=== PATIENT | female | born 1940 | race Caucasian/White ===

== ENCOUNTER → 2024-03-05 | Outpatient (CLI) | payer MEDICARE, BC ==
[2024-03-05 15:55] LABS: INR 1.77
== END ==
LOC: M LAB 15:03
PROVIDERS: ATTEND Internal Medicine Cardiovascular Disease
DX: I48.20 Chronic atrial fibrillation, unspecified (principal); Z51.81 Encounter for therapeutic drug level monitoring; Z79.01 Long term (current) use of anticoagulants

== ENCOUNTER → 2024-03-12 | Outpatient (CLI) | payer MEDICARE, BC ==
[2024-03-12 14:29] LABS: INR 2.19; PROTHROMBIN TIME 23.5 SECONDS (12.5-14.5)
== END ==
LOC: M LAB 13:54
PROVIDERS: ATTEND Internal Medicine Cardiovascular Disease
DX: Z51.81 Encounter for therapeutic drug level monitoring (principal); Z79.01 Long term (current) use of anticoagulants; I48.20 Chronic atrial fibrillation, unspecified

== ENCOUNTER → 2024-03-19 | Outpatient (CLI) | payer MEDICARE, BC ==
[2024-03-19 15:38] LABS: INR 2.38; PROTHROMBIN TIME 25.2 SECONDS (12.5-14.5)
== END ==
LOC: M LAB 14:24
PROVIDERS: ATTEND Internal Medicine Cardiovascular Disease
DX: Z51.81 Encounter for therapeutic drug level monitoring (principal); I48.20 Chronic atrial fibrillation, unspecified; Z79.01 Long term (current) use of anticoagulants

== ENCOUNTER → 2024-03-20 | Outpatient (CLI) | payer MEDICARE, BC | LOC: M RAD 10:37 → EDUNIT# 11:15 | PROVIDERS: ATTEND Surgery | DX: I70.292 Other atherosclerosis of native arteries of extremities, left leg (principal); R68.89 Other general symptoms and signs; E11.59 Type 2 diabetes mellitus with other circulatory complications ==

== ENCOUNTER → 2024-03-21 | Outpatient (REF) | payer MEDICARE, BC | LOC: M SFHCWOUN 16:29 | PROVIDERS: ATTEND Physician Assistant | DX: L97.922 Non-pressure chronic ulcer of unspecified part of left lower leg with fat layer exposed (principal) ==

== ENCOUNTER → 2024-04-02 | Outpatient (CLI) | payer MEDICARE, BC ==
[2024-04-02 10:57] LABS: INR 2.8; PROTHROMBIN TIME 28.5 SECONDS (12.5-14.5)
== END ==
LOC: M LAB 09:45
PROVIDERS: ATTEND Internal Medicine Cardiovascular Disease
DX: Z51.81 Encounter for therapeutic drug level monitoring (principal); Z79.01 Long term (current) use of anticoagulants; I48.20 Chronic atrial fibrillation, unspecified

== ENCOUNTER → 2024-04-05 | Outpatient (CLI) | payer MEDICARE, BC ==
[2024-04-05 09:36] LABS: HEMATOCRIT 28.3 % (36.0-47.0); HEMOGLOBIN 8.9 g/dl (12.0-15.5); MEAN CORPUSCULAR HEMOGLOBIN 28.3 pg (27.0-33.0); MEAN CORPUSCULAR HGB CONC 31.4 g/dl (32.0-36.5); MEAN CORPUSCULAR VOLUME 90.1 fl (80.0-96.0); PLATELET COUNT, AUTOMATED 233 10^3/uL (150-450); RED BLOOD COUNT 3.14 10^6/uL (4.00-5.40); WHITE BLOOD COUNT 6.4 10^3/uL (4.0-10.0)
== END ==
LOC: M LAB 08:18
PROVIDERS: ATTEND Physician Assistant
DX: I87.312 Chronic venous hypertension (idiopathic) with ulcer of left lower extremity (principal)

== ENCOUNTER → 2024-04-07 | Outpatient (CLI) | payer MEDICARE, BC ==
[2024-04-07 10:03] LABS: HEMATOCRIT 30.1 % (36.0-47.0); HEMOGLOBIN 9.2 g/dl (12.0-15.5); MEAN CORPUSCULAR HEMOGLOBIN 27.8 pg (27.0-33.0); MEAN CORPUSCULAR HGB CONC 30.6 g/dl (32.0-36.5); MEAN CORPUSCULAR VOLUME 90.9 fl (80.0-96.0); PLATELET COUNT, AUTOMATED 236 10^3/uL (150-450); RED BLOOD COUNT 3.31 10^6/uL (4.00-5.40); WHITE BLOOD COUNT 6.1 10^3/uL (4.0-10.0)
== END ==
LOC: M LAB 09:43
PROVIDERS: ATTEND Physician Assistant
DX: D64.9 Anemia, unspecified (principal)

== ENCOUNTER → 2024-04-16 | Outpatient (CLI) | payer MEDICARE, BC ==
[2024-04-16 11:01] LABS: INR 2.24
== END ==
LOC: M LAB 09:39
PROVIDERS: ATTEND Internal Medicine Cardiovascular Disease
DX: I48.20 Chronic atrial fibrillation, unspecified (principal); Z51.81 Encounter for therapeutic drug level monitoring; Z79.01 Long term (current) use of anticoagulants

== ENCOUNTER → 2024-04-16 | Outpatient (CLI) | payer MEDICARE, BC ==
[2024-04-16 10:50] LABS: HEMATOCRIT 31.4 % (36.0-47.0); HEMOGLOBIN 9.7 g/dl (12.0-15.5); MEAN CORPUSCULAR HEMOGLOBIN 27.5 pg (27.0-33.0); MEAN CORPUSCULAR HGB CONC 30.9 g/dl (32.0-36.5); PLATELET COUNT, AUTOMATED 247 10^3/uL (150-450); RED BLOOD COUNT 3.53 10^6/uL (4.00-5.40); WHITE BLOOD COUNT 7.9 10^3/uL (4.0-10.0)
== END ==
LOC: M LAB 09:37
PROVIDERS: ATTEND Physician Assistant
DX: D64.9 Anemia, unspecified (principal); I48.20 Chronic atrial fibrillation, unspecified; Z51.81 Encounter for therapeutic drug level monitoring; Z79.01 Long term (current) use of anticoagulants

== ENCOUNTER → 2024-04-19 | Outpatient (CLI) | payer MEDICARE, BC ==
[2024-04-19 19:08] LABS: BASO % 0.4 % (0.0-1.0); EOS # 0.1 10^3/uL (0.0-0.5); EOS % 1.2 % (0.0-3.0); HEMOGLOBIN 9.8 g/dl (12.0-15.5); LYMPH # 1.9 10^3/uL (1.5-5.0); LYMPH % 23.2 % (24.0-44.0); MEAN CORPUSCULAR HEMOGLOBIN 28.2 pg (27.0-33.0); MEAN CORPUSCULAR HGB CONC 31.6 g/dl (32.0-36.5); MEAN CORPUSCULAR VOLUME 89.3 fl (80.0-96.0); MONO # 0.7 10^3/uL (0.0-0.8); MONO % 9.1 % (2.0-8.0); NEUTROPHILS # 5.3 10^3/uL (1.5-8.5); NEUTROPHILS % 65.6 % (36.0-66.0); PLATELET COUNT, AUTOMATED 265 10^3/uL (150-450); RED BLOOD COUNT 3.47 10^6/uL (4.00-5.40); WHITE BLOOD COUNT 8.1 10^3/uL (4.0-10.0)
[2024-04-19 19:18] LABS: HEMOGLOBIN A1c 6.6 % (4.0-6.0)
[2024-04-19 19:25] LABS: IRON (FE) 28 UG/DL (50-170)
[2024-04-19 19:26] LABS: ALBUMIN 2.8 G/DL (3.2-5.2); ALKALINE PHOSPHATASE 71 U/L (46-116); ALT/SGPT 24 U/L (7.0-40); AST/SGOT 22 U/L (<34); BILIRUBIN,TOTAL 0.4 MG/DL (0.3-1.2); BLOOD UREA NITROGEN 22 MG/DL (9-23); CALCIUM LEVEL 8.3 MG/DL (8.3-10.6); CARBON DIOXIDE LEVEL 29 MMOL/L (20-31); CHLORIDE LEVEL 103 MMOL/L (98-107); CHOLESTEROL LEVEL 121 MG/DL (<200); CREATININE FOR GFR 0.85 MG/DL (0.55-1.30); GLOMERULAR FILTRATION RATE > 60.0 (>32); GLUCOSE, FASTING 231 MG/DL (74-106); HDL CHOLESTEROL 31.8 MG/DL (>40); LDL CHOLESTEROL 67.6 MG/DL (<100); MAGNESIUM LEVEL 2.1 MG/DL (1.8-2.4); NON-HDL-C 89.2 MG/DL; POTASSIUM SERUM 3.6 MMOL/L (3.5-5.1); SODIUM LEVEL 138 MMOL/L (136-145); TOTAL IRON BINDING CAPACITY 281 UG/DL (250-425); TRIGLYCERIDES LEVEL 108 MG/DL (<150)
[2024-04-19 19:27] LABS: FREE T4 0.99 NG/DL (0.89-1.76)
[2024-04-19 19:28] LABS: THYROID STIMULATING HORMONE 0.624 uIU/ML (0.55-4.78)
== END ==
LOC: M PLALAB 15:02
PROVIDERS: ATTEND Nurse Practitioner Family
DX: D64.9 Anemia, unspecified (principal); E11.9 Type 2 diabetes mellitus without complications; I10 Essential (primary) hypertension; E78.2 Mixed hyperlipidemia; F41.9 Anxiety disorder, unspecified; E55.9 Vitamin D deficiency, unspecified

== ENCOUNTER → 2024-04-30 | Outpatient (CLI) | payer MEDICARE, BC | LOC: M PLALAB 14:26 | PROVIDERS: ATTEND Nurse Practitioner Family | DX: D64.9 Anemia, unspecified (principal) ==

== ENCOUNTER → 2024-04-30 | Outpatient (CLI) | payer MEDICARE, BC ==
[2024-04-30 17:11] LABS: INR 2.56; PROTHROMBIN TIME 26.6 SECONDS (12.5-14.5)
== END ==
LOC: M PLALAB 14:30
PROVIDERS: ATTEND Internal Medicine Cardiovascular Disease
DX: Z51.81 Encounter for therapeutic drug level monitoring (principal); I48.20 Chronic atrial fibrillation, unspecified; Z79.01 Long term (current) use of anticoagulants

== ENCOUNTER 2024-05-06 17:25 | Emergency (ER) | payer MEDICARE, BC ==
[~2024-05-06] VITALS: Ht 160 cm; Wt 87.6 kg
[2024-05-06 17:44] VITALS: TEMP 100.7
[2024-05-06] MEDS ORDERED: ISOVUE-370 76% 100ML VIAL As Ordered ONE (17:44)
[2024-05-06 17:48] LABS: BASO % 0.5 % (0.0-1.0); EOS # 0.2 10^3/uL (0.0-0.5); EOS % 2.5 % (0.0-3.0); HEMATOCRIT 32.7 % (36.0-47.0); HEMOGLOBIN 10.3 g/dl (12.0-15.5); LYMPH % 37.5 % (24.0-44.0); MEAN CORPUSCULAR HEMOGLOBIN 27.8 pg (27.0-33.0); MEAN CORPUSCULAR HGB CONC 31.5 g/dl (32.0-36.5); MEAN CORPUSCULAR VOLUME 88.4 fl (80.0-96.0); MONO # 0.8 10^3/uL (0.0-0.8); MONO % 9.7 % (2.0-8.0); NEUTROPHILS % 49.4 % (36.0-66.0); PLATELET COUNT, AUTOMATED 212 10^3/uL (150-450)
[2024-05-06] MEDS: ACETAMINOPHEN TAB 650MG DOSE (2X325MG) PO ONE (18:05)
[2024-05-06 18:07] LABS: CK-MB VALUE MASS < 1.0 NG/ML (<3.6)
[2024-05-06 18:09] LABS: BLOOD UREA NITROGEN 18 MG/DL (9-23); CALCIUM LEVEL 8.5 MG/DL (8.3-10.6); CARBON DIOXIDE LEVEL 30 MMOL/L (20-31); CHLORIDE LEVEL 108 MMOL/L (98-107); CREATININE FOR GFR 0.81 MG/DL (0.55-1.30); GLOMERULAR FILTRATION RATE > 60.0 (>32); GLUCOSE, FASTING 266 MG/DL (74-106); POTASSIUM SERUM 4.3 MMOL/L (3.5-5.1); SODIUM LEVEL 139 MMOL/L (136-145)
[2024-05-06 18:11] LABS: CPK CREATINE PHOSPHOKINASE 82 U/L (34-145); MB/CK RELATIVE INDEX 1.21 (< OR =4)
[2024-05-06] MEDS ORDERED: CEFEPIME HCL 2 GM in D5W MINI-BAG PLUS 50 ML IV ONE (18:25)
[2024-05-06 18:30] LABS: INR 2.37; PARTIAL THROMBOPLASTIN TIME 30.1 SECONDS (24.8-34.2)
[2024-05-06 18:52] VITALS: BP 113/53; O2SAT 95
== END 2024-05-06 18:59 | disposition left against medical advice (07) ==
LOC: EDBD 17:25 → M ED 17:25
DX: R53.1 Weakness (principal); R06.02 Shortness of breath; J81.1 Chronic pulmonary edema; I51.7 Cardiomegaly; E11.9 Type 2 diabetes mellitus without complications; E78.5 Hyperlipidemia, unspecified; K58.9 Irritable bowel syndrome, unspecified; Z95.0 Presence of cardiac pacemaker; Z86.79 Personal history of other diseases of the circulatory system; Z79.01 Long term (current) use of anticoagulants; Z53.9 Procedure and treatment not carried out, unspecified reason
CPT/HCPCS: 36415; 51701; 70450; 70496; 70498; 71045; 80047; 80048; 82550; 82553; 84484; 85025; 85610; 85730; 87486; 87581; 87633; 87798; 93005; 93041; 94760; 99285; Q9967

== ENCOUNTER → 2024-05-17 | Outpatient (CLI) | payer MEDICARE, BC ==
[2024-05-17 17:19] LABS: INR 1.66
== END ==
LOC: M PLALAB 16:06
PROVIDERS: ATTEND Internal Medicine Cardiovascular Disease
DX: I48.20 Chronic atrial fibrillation, unspecified (principal); Z51.81 Encounter for therapeutic drug level monitoring; Z79.01 Long term (current) use of anticoagulants

== ENCOUNTER → 2024-05-29 | Outpatient (CLI) | payer MEDICARE, BC ==
[2024-05-29 15:16] LABS: INR 2.44; PROTHROMBIN TIME 25.6 SECONDS (12.5-14.5)
== END ==
LOC: M PLALAB 14:07
PROVIDERS: ATTEND Internal Medicine Cardiovascular Disease
DX: I48.20 Chronic atrial fibrillation, unspecified (principal); Z51.81 Encounter for therapeutic drug level monitoring; Z79.01 Long term (current) use of anticoagulants

== ENCOUNTER → 2024-06-06 | Outpatient (CLI) | payer MEDICARE, BC ==
[2024-06-06 15:07] LABS: INR 2.73; PROTHROMBIN TIME 27.9 SECONDS (12.5-14.5)
== END ==
LOC: M PLALAB 13:10
PROVIDERS: ATTEND Internal Medicine Cardiovascular Disease
DX: I48.20 Chronic atrial fibrillation, unspecified (principal); Z51.81 Encounter for therapeutic drug level monitoring; Z79.01 Long term (current) use of anticoagulants

== ENCOUNTER → 2024-06-12 | Outpatient (REF) | payer MEDICARE, BC ==
[~2024-06-12] MED LIST: ACET-897 PO; ATOR40TA75 PO; ELIQ5TAB PO; EZET10TA21 PO; FERR1TAB8 PO; FLUC-1 PO; FURO40TA2 PO; GABA-1172 PO; HUMA75VLDS SC; LEXA5TAB13 PO; LOSA25TA13 PO; MIRA3350 PO; MIRT-88 PO; ONDA-83 PO; THERTAB52 PO; WARF4TAB51 PO
[2024-06-12 09:27] LABS: INR 3.31; PROTHROMBIN TIME 32.4 SECONDS (12.5-14.5)
== END ==
DX: I48.91 Unspecified atrial fibrillation (principal)

== ENCOUNTER → 2024-06-21 | Outpatient (REF) | payer MEDICARE, BC ==
[2024-06-21 09:01] LABS: INR 2.92; PROTHROMBIN TIME 29.4 SECONDS (12.5-14.5)
== END ==
PROVIDERS: ATTEND Nurse Practitioner Family
DX: I48.91 Unspecified atrial fibrillation (principal)

== ENCOUNTER 2024-07-05 10:57 | Emergency (ER) | payer MEDICARE, BC ==
[2024-07-05] MEDS ORDERED: WARF4TAB51 PO (11:43)
[2024-07-05 11:45] LABS: HEMATOCRIT 29.8 % (36.0-47.0); HEMOGLOBIN 9.3 g/dl (12.0-15.5); MEAN CORPUSCULAR HEMOGLOBIN 26.3 pg (27.0-33.0); MEAN CORPUSCULAR HGB CONC 31.2 g/dl (32.0-36.5); MEAN CORPUSCULAR VOLUME 84.2 fl (80.0-96.0); PLATELET COUNT, AUTOMATED 226 10^3/uL (150-450); RED BLOOD COUNT 3.54 10^6/uL (4.00-5.40); WHITE BLOOD COUNT 9.6 10^3/uL (4.0-10.0)
[2024-07-05 12:10] LABS: PROTHROMBIN TIME > 150.0 SECONDS (12.5-14.5)
[2024-07-05 12:19] LABS: INR > 23.00
[2024-07-05 13:08] LABS: BLOOD UREA NITROGEN 18 MG/DL (9-23); CALCIUM LEVEL 8.4 MG/DL (8.3-10.6); CARBON DIOXIDE LEVEL 30 MMOL/L (20-31); CHLORIDE LEVEL 106 MMOL/L (98-107); CREATININE FOR GFR 0.77 MG/DL (0.55-1.30); GLOMERULAR FILTRATION RATE > 60.0 (>32); GLUCOSE, FASTING 202 MG/DL (74-106); POTASSIUM SERUM 3.1 MMOL/L (3.5-5.1); SODIUM LEVEL 140 MMOL/L (136-145)
[2024-07-05] MEDS: PHYTONADIONE 5 MG TAB PO ONE (13:26)
[2024-07-05] MEDS: POTASSIUM CHLORIDE 10MEQ SR TABLET PO ONE (13:28)
[2024-07-05] MEDS ORDERED: THERTAB52 PO (13:49)
[2024-07-05] MEDS ORDERED: FURO40TA2 PO (13:49)
[2024-07-05] MEDS ORDERED: EZET10TA21 PO (13:49)
[2024-07-05] MEDS ORDERED: MIRT-88 PO (13:49)
[2024-07-05] MEDS ORDERED: FERR1TAB8 PO (13:49)
[2024-07-05] MEDS ORDERED: LEXA5TAB13 PO (13:49)
[2024-07-05] MEDS ORDERED: ATOR40TA75 PO (13:49)
[2024-07-05] MEDS ORDERED: FLUC200T4 PO (13:49)
[2024-07-05] MEDS ORDERED: GABA-1172 PO ×2 (13:49)
[2024-07-05] MEDS ORDERED: LOSA25TA13 PO (13:49)
[2024-07-05] MEDS ORDERED: ONDA-83 PO (13:56)
[2024-07-05] MEDS ORDERED: ACET-897 PO (13:56)
[2024-07-05] MEDS ORDERED: MIRA3350 PO (13:56)
[2024-07-05] MEDS ORDERED: HUMA75VLDS SC (13:56)
[2024-07-05] MEDS ORDERED: HOME MED LIST COMPLETE! XX SCH (14:00)
[2024-07-05 14:43] VITALS: BP 134/62; TEMP 98; O2SAT 98
== END 2024-07-05 14:44 | disposition home or self-care (01) ==
LOC: M ED 10:57
DX: R79.1 Abnormal coagulation profile (principal); E11.9 Type 2 diabetes mellitus without complications; E78.5 Hyperlipidemia, unspecified; I48.91 Unspecified atrial fibrillation; Z86.79 Personal history of other diseases of the circulatory system; Z79.02 Long term (current) use of antithrombotics/antiplatelets; Z79.811 Long term (current) use of aromatase inhibitors; Z79.899 Other long term (current) drug therapy; Z79.01 Long term (current) use of anticoagulants; Z79.4 Long term (current) use of insulin

== ENCOUNTER → 2024-07-05 | Outpatient (REF) | payer MEDICARE, BC ==
[~2024-07-05] MED LIST changes: -ELIQ5TAB PO; -FLUC-1 PO; +FLUC200T4 PO
[2024-07-05 08:34] LABS: PROTHROMBIN TIME > 150.0 SECONDS (12.5-14.5)
[2024-07-05 09:42] LABS: INR > 23.00
== END ==
PROVIDERS: ATTEND Nurse Practitioner Family
DX: I48.91 Unspecified atrial fibrillation (principal); Z79.01 Long term (current) use of anticoagulants

== ENCOUNTER 2024-07-08 11:35 | Emergency (ER) | payer MEDICARE, BC ==
[~2024-07-08] VITALS: Ht 160 cm; Wt 88.6 kg
[2024-07-08 13:27] LABS: BASO # 0.1 10^3/uL (0.0-0.2); BASO % 0.5 % (0.0-1.0); EOS # 0.1 10^3/uL (0.0-0.5); EOS % 1.3 % (0.0-3.0); HEMATOCRIT 27.7 % (36.0-47.0); HEMOGLOBIN 8.6 g/dl (12.0-15.5); LYMPH # 2.4 10^3/uL (1.5-5.0); LYMPH % 24.1 % (24.0-44.0); MEAN CORPUSCULAR HEMOGLOBIN 26.5 pg (27.0-33.0); MEAN CORPUSCULAR VOLUME 85.2 fl (80.0-96.0); MONO # 0.9 10^3/uL (0.0-0.8); MONO % 8.5 % (2.0-8.0); NEUTROPHILS # 6.5 10^3/uL (1.5-8.5); NEUTROPHILS % 65.1 % (36.0-66.0); PLATELET COUNT, AUTOMATED 239 10^3/uL (150-450); RED BLOOD COUNT 3.25 10^6/uL (4.00-5.40)
[2024-07-08 13:39] LABS: PARTIAL THROMBOPLASTIN TIME 91.2 SECONDS (24.8-34.2); PROTHROMBIN TIME 87.2 SECONDS (12.5-14.5)
[2024-07-08 13:40] LABS: INR 11.74
[2024-07-08 14:08] VITALS: BP 148/63; TEMP 97.8; O2SAT 100
[2024-07-08 14:19] LABS: ALBUMIN 2.5 G/DL (3.2-5.2); ALKALINE PHOSPHATASE 61 U/L (35-104); ALT/SGPT 39 U/L (7.0-40); AST/SGOT 51 U/L (<34); BILIRUBIN,DIRECT 0.2 MG/DL (<0.4); BILIRUBIN,TOTAL 0.6 MG/DL (0.3-1.2); BLOOD UREA NITROGEN 16 MG/DL (9-23); CALCIUM LEVEL 8.5 MG/DL (8.3-10.6); CARBON DIOXIDE LEVEL 30 MMOL/L (20-31); CHLORIDE LEVEL 107 MMOL/L (98-107); GLOMERULAR FILTRATION RATE > 60.0 (>32); GLUCOSE, FASTING 194 MG/DL (74-106); POTASSIUM SERUM 3.8 MMOL/L (3.5-5.1); SODIUM LEVEL 141 MMOL/L (136-145); TOTAL PROTEIN 5.8 G/DL (5.7-8.2)
[2024-07-08] MEDS: PHYTONADIONE 5 MG TAB PO ONE (16:20)
== END 2024-07-08 16:30 | disposition left against medical advice (07) ==
LOC: M ED 11:35
DX: R79.1 Abnormal coagulation profile (principal); M50.322 Other cervical disc degeneration at C5-C6 level; M22.2X2 Patellofemoral disorders, left knee; M25.462 Effusion, left knee; M71.462 Calcium deposit in bursa, left knee; E11.9 Type 2 diabetes mellitus without complications; Z86.79 Personal history of other diseases of the circulatory system; Z95.0 Presence of cardiac pacemaker; Z79.02 Long term (current) use of antithrombotics/antiplatelets; Z79.4 Long term (current) use of insulin; Z79.1 Long term (current) use of non-steroidal anti-inflammatories (NSAID); Z79.899 Other long term (current) drug therapy; Z53.9 Procedure and treatment not carried out, unspecified reason

== ENCOUNTER → 2024-07-08 | Outpatient (CLI) | payer MEDICARE, BC ==
[2024-07-08 10:11] LABS: PROTHROMBIN TIME 89.5 SECONDS (12.5-14.5)
[2024-07-08 10:20] LABS: INR 12.14
== END ==
LOC: M LAB 09:09
PROVIDERS: ATTEND Internal Medicine Cardiovascular Disease
DX: I48.20 Chronic atrial fibrillation, unspecified (principal); Z51.81 Encounter for therapeutic drug level monitoring; Z79.01 Long term (current) use of anticoagulants

== ENCOUNTER 2024-07-09 09:33 | Inpatient (IN) | payer MEDICARE, BC ==
[~2024-07-09] VITALS: Ht 160 cm; Wt 88.2 kg
[2024-07-09 10:11] LABS: BASO % 0.4 % (0.0-1.0); EOS # 0.2 10^3/uL (0.0-0.5); EOS % 2.2 % (0.0-3.0); HEMATOCRIT 26.8 % (36.0-47.0); HEMOGLOBIN 8.5 g/dl (12.0-15.5); LYMPH # 2.9 10^3/uL (1.5-5.0); LYMPH % 28.1 % (24.0-44.0); MEAN CORPUSCULAR HEMOGLOBIN 27.3 pg (27.0-33.0); MEAN CORPUSCULAR HGB CONC 31.7 g/dl (32.0-36.5); MEAN CORPUSCULAR VOLUME 86.2 fl (80.0-96.0); MONO # 0.9 10^3/uL (0.0-0.8); NEUTROPHILS # 6.3 10^3/uL (1.5-8.5); NEUTROPHILS % 59.9 % (36.0-66.0); PLATELET COUNT, AUTOMATED 261 10^3/uL (150-450); RED BLOOD COUNT 3.11 10^6/uL (4.00-5.40); WHITE BLOOD COUNT 10.5 10^3/uL (4.0-10.0)
[2024-07-09 10:25] LABS: PROTHROMBIN TIME 46.8 SECONDS (12.5-14.5)
[2024-07-09 10:38] LABS: VENOUS BASE EXCESS 3.3 (-2.0-2.0); VENOUS HCO3 27.3 MMOL/L (23.0-27.0); VENOUS PARTIAL PRESSURE CO2 39.3 mmHg (38.0-50.0); VENOUS PARTIAL PRESSURE O2 34.7 mmHg (30.0-50.0); VENOUS STANDARD HCO3 26.9 MMOL/L; VENOUS TOTAL CO2 28.5 MMOL/L (24.0-28.0)
[2024-07-09 10:47] LABS: INR 5.16
[2024-07-09] MEDS ORDERED: ACETAMINOPHEN *IV* 1,000 MG in IV 1 EA IV ONE (10:50)
[2024-07-09 11:00] LABS: ALBUMIN 2.6 G/DL (3.2-5.2); ALKALINE PHOSPHATASE 59 U/L (35-104); ALT/SGPT 39 U/L (7.0-40); AST/SGOT 48 U/L (<34); BILIRUBIN,DIRECT 0.3 MG/DL (<0.4); BILIRUBIN,TOTAL 0.9 MG/DL (0.3-1.2); BLOOD UREA NITROGEN 17 MG/DL (9-23); CALCIUM LEVEL 8.8 MG/DL (8.3-10.6); CARBON DIOXIDE LEVEL 28 MMOL/L (20-31); CHLORIDE LEVEL 108 MMOL/L (98-107); CREATININE FOR GFR 0.85 MG/DL (0.55-1.30); GLOMERULAR FILTRATION RATE > 60.0 (>32); GLUCOSE, FASTING 165 MG/DL (74-106); POTASSIUM SERUM 3.8 MMOL/L (3.5-5.1); SODIUM LEVEL 143 MMOL/L (136-145); TOTAL PROTEIN 6.1 G/DL (5.7-8.2)
[2024-07-09] MEDS ORDERED: HOME MED LIST COMPLETE! XX SCH (11:00)
[2024-07-09] MEDS: BOOSTRIX VACCINE (TETANUS/DIPHTH/ACEL. PERTUSSIS) 0.5ML SYR IM.IMMUN ONE (12:39)
[2024-07-09] MEDS ORDERED: ISOVUE-370 76% 100ML VIAL As Ordered ONE (12:53)
[2024-07-09] MEDS ORDERED: DEXTROSE 50% 50ML SYRINGE IV PRN (12:55)
[2024-07-09] MEDS ORDERED: GLUCOSE 4 GM CHEW PO PRN (12:55)
[2024-07-09] MEDS ORDERED: GLUCAGON INJ 1MG VIAL SC PRN (12:55)
[2024-07-09] MEDS: NS 1,000 ML IV SCH (13:33)
[2024-07-09] MEDS: dexAMETHasone 20MG/5ML VIAL IV SCH (13:57)
[2024-07-09] MEDS: PANTOPRAZOLE 40MG VIAL IV SCH (13:57)
[2024-07-09 14:21] LABS: IRON (FE) 35 UG/DL (50-170); PERCENT SATURATION 12.9 % (13.2-45.0); TOTAL IRON BINDING CAPACITY 271 UG/DL (250-425)
[2024-07-09 14:24] LABS: FOLATE > 24.00 NG/ML (>5.4)
[2024-07-09 14:25] LABS: FERRITIN 74.8 NG/ML (7.3-270.7); VITAMIN B12 LEVEL 669 PG/ML (211-911)
[2024-07-09] MEDS ORDERED: ONDANSETRON 4MG TAB PO PRN (16:30)
[2024-07-09] MEDS ORDERED: IRON SUCROSE 200 MG in NS 100 ML IV ONE (16:30)
[2024-07-09] MEDS ORDERED: MIRALAX *UNIT DOSE* 17GM PACKET PO PRN (16:30)
[2024-07-09 17:15] VITALS: BP 136/65; TEMP 97.3; O2SAT 96
[2024-07-09] MEDS: INSULIN LISPRO (NovoLOG) PER UNIT SC SCH ×2 (17:37→21:12)
[2024-07-09] MEDS: IRON SUCROSE 100MG 5ML VIAL IV ONE (18:48)
[2024-07-09 20:16] VITALS: BP 127/59; TEMP 97.2; O2SAT 96
[2024-07-09] MEDS: MIRTAZAPINE 15 MG TAB PO SCH (21:11)
[2024-07-09 23:23] VITALS: BP 123/59; TEMP 96.9; O2SAT 99
[2024-07-10 03:04] VITALS: BP 182/78; TEMP 97.4; O2SAT 100
[2024-07-10] MEDS ORDERED: TETRACAINE 0.5% OPHTH SOLN 4ML OD ONE (03:20)
[2024-07-10] MEDS: TETRACAINE 0.5% OPHTH SOLN 4ML OU ONE (04:15)
[2024-07-10 05:03] LABS: HEMATOCRIT 25.9 % (36.0-47.0); MEAN CORPUSCULAR HGB CONC 30.9 g/dl (32.0-36.5); MEAN CORPUSCULAR VOLUME 87.5 fl (80.0-96.0); PLATELET COUNT, AUTOMATED 229 10^3/uL (150-450); RED BLOOD COUNT 2.96 10^6/uL (4.00-5.40); WHITE BLOOD COUNT 7.9 10^3/uL (4.0-10.0)
[2024-07-10 05:23] LABS: INR 3.88; PARTIAL THROMBOPLASTIN TIME 64.6 SECONDS (24.8-34.2); PROTHROMBIN TIME 37.7 SECONDS (12.5-14.5)
[2024-07-10 05:39] VITALS: BP 169/74; TEMP 97.2; O2SAT 99
[2024-07-10 05:50] LABS: ALBUMIN 2.3 G/DL (3.2-5.2); ALKALINE PHOSPHATASE 59 U/L (35-104); ALT/SGPT 40 U/L (7.0-40); AST/SGOT 49 U/L (<34); BILIRUBIN,TOTAL 0.7 MG/DL (0.3-1.2); BLOOD UREA NITROGEN 19 MG/DL (9-23); CALCIUM LEVEL 8.2 MG/DL (8.3-10.6); CARBON DIOXIDE LEVEL 26 MMOL/L (20-31); CHLORIDE LEVEL 109 MMOL/L (98-107); CREATININE FOR GFR 0.72 MG/DL (0.55-1.30); GLOMERULAR FILTRATION RATE > 60.0 (>32); GLUCOSE, FASTING 277 MG/DL (74-106); POTASSIUM SERUM 4.4 MMOL/L (3.5-5.1); SODIUM LEVEL 141 MMOL/L (136-145)
[2024-07-10 07:00] LABS: CHOLESTEROL LEVEL 126 MG/DL (<200); CHOLESTEROL RISK RATIO 3.63 (<5); HDL CHOLESTEROL 34.7 MG/DL (>40); LDL CHOLESTEROL 73.5 MG/DL (<100); NON-HDL-C 91.3 MG/DL; TRIGLYCERIDES LEVEL 89 MG/DL (<150)
[2024-07-10 07:37] LABS: HEMOGLOBIN A1c 6.9 % (4.0-6.0)
[2024-07-10] MEDS: FLUCONAZOLE 100 MG TAB PO SCH (08:48)
[2024-07-10] MEDS: ATORVASTATIN 20 MG TAB PO SCH (08:48)
[2024-07-10] MEDS: LOSARTAN 25 MG TAB PO SCH (08:48)
[2024-07-10] MEDS: GABAPENTIN 300 MG CAP PO SCH ×2 (08:48→21:39)
[2024-07-10] MEDS: FUROSEMIDE 40 MG TAB PO SCH (08:49)
[2024-07-10] MEDS: LEVEMIR (INSULIN DETEMIR) 1 UNITS/0.01ML SC SCH (08:49)
[2024-07-10] MEDS: EZETIMIBE 10MG TABLET (ZETIA) PO SCH (08:49)
[2024-07-10] MEDS ORDERED: ESCITALOPRAM OXALATE 5MG TABLET (LEXAPRO) PO SCH (09:00)
[2024-07-10 12:00] VITALS: BP 128/59; TEMP 97.4; O2SAT 98
[2024-07-10 15:18] VITALS: BP 142/64; TEMP 98.7; O2SAT 97
[2024-07-10 20:00] VITALS: BP 123/58; TEMP 97.2; O2SAT 95
[2024-07-11] VITALS (20 sets, daily range): BP systolic 119–150; BP diastolic 57–72; TEMP 96.2–97.6; O2SAT 91–100
[2024-07-11 07:51] LABS: HEMATOCRIT 24.4 % (36.0-47.0); HEMOGLOBIN 7.7 g/dl (12.0-15.5); MEAN CORPUSCULAR HEMOGLOBIN 27.3 pg (27.0-33.0); MEAN CORPUSCULAR HGB CONC 31.6 g/dl (32.0-36.5); MEAN CORPUSCULAR VOLUME 86.5 fl (80.0-96.0); PLATELET COUNT, AUTOMATED 248 10^3/uL (150-450); RED BLOOD COUNT 2.82 10^6/uL (4.00-5.40); WHITE BLOOD COUNT 16.5 10^3/uL (4.0-10.0)
[2024-07-11 08:04] LABS: PARTIAL THROMBOPLASTIN TIME 58.8 SECONDS (24.8-34.2); PROTHROMBIN TIME 54.1 SECONDS (12.5-14.5)
[2024-07-11 08:12] LABS: INR 6.25
[2024-07-11 08:26] LABS: ALBUMIN 2.3 G/DL (3.2-5.2); ALKALINE PHOSPHATASE 51 U/L (35-104); ALT/SGPT 36 U/L (7.0-40); AST/SGOT 39 U/L (<34); BILIRUBIN,TOTAL 0.6 MG/DL (0.3-1.2); BLOOD UREA NITROGEN 26 MG/DL (9-23); CALCIUM LEVEL 8.3 MG/DL (8.3-10.6); CARBON DIOXIDE LEVEL 28 MMOL/L (20-31); CHLORIDE LEVEL 111 MMOL/L (98-107); CREATININE FOR GFR 0.76 MG/DL (0.55-1.30); GLOMERULAR FILTRATION RATE > 60.0 (>32); GLUCOSE, FASTING 240 MG/DL (74-106); POTASSIUM SERUM 4.2 MMOL/L (3.5-5.1); SODIUM LEVEL 143 MMOL/L (136-145); TOTAL PROTEIN 5.5 G/DL (5.7-8.2)
[2024-07-11] MEDS: LEVEMIR (INSULIN DETEMIR) 1 UNITS/0.01ML SC SCH (08:49)
[2024-07-11] MEDS: FERROUS SULFATE 325MG TAB PO SCH (08:49)
[2024-07-11] MEDS: ACETAMINOPHEN 325 MG TAB PO PRN (08:50)
[2024-07-11] MEDS: PHYTONADIONE 2.5 MG **1/2 TAB PO ONE (12:19)
[2024-07-12] VITALS (10 sets, daily range): BP systolic 124–149; BP diastolic 59–72; TEMP 96.8–97.3; O2SAT 92–100
[2024-07-12 08:17] LABS: HEMATOCRIT 24.6 % (36.0-47.0); HEMOGLOBIN 7.7 g/dl (12.0-15.5); MEAN CORPUSCULAR HEMOGLOBIN 27.5 pg (27.0-33.0); MEAN CORPUSCULAR HGB CONC 31.3 g/dl (32.0-36.5); MEAN CORPUSCULAR VOLUME 87.9 fl (80.0-96.0); PLATELET COUNT, AUTOMATED 291 10^3/uL (150-450); WHITE BLOOD COUNT 14.1 10^3/uL (4.0-10.0)
[2024-07-12 08:36] LABS: PARTIAL THROMBOPLASTIN TIME 47.3 SECONDS (24.8-34.2); PROTHROMBIN TIME 50.5 SECONDS (12.5-14.5)
[2024-07-12 08:44] LABS: ALBUMIN 2.6 G/DL (3.2-5.2); ALKALINE PHOSPHATASE 59 U/L (35-104); ALT/SGPT 48 U/L (7.0-40); AST/SGOT 51 U/L (<34); BILIRUBIN,TOTAL 0.7 MG/DL (0.3-1.2); BLOOD UREA NITROGEN 37 MG/DL (9-23); CALCIUM LEVEL 8.7 MG/DL (8.3-10.6); CARBON DIOXIDE LEVEL 27 MMOL/L (20-31); CHLORIDE LEVEL 109 MMOL/L (98-107); CREATININE FOR GFR 0.85 MG/DL (0.55-1.30); GLOMERULAR FILTRATION RATE > 60.0 (>32); GLUCOSE, FASTING 160 MG/DL (74-106); POTASSIUM SERUM 4.3 MMOL/L (3.5-5.1); SODIUM LEVEL 141 MMOL/L (136-145)
[2024-07-12 09:03] LABS: INR 5.7
[2024-07-12] MEDS: CEFDINIR 300 MG CAP (OMNICEF) PO SCH ×2 (09:06→21:29)
[2024-07-12] MEDS: LEVEMIR (INSULIN DETEMIR) 1 UNITS/0.01ML SC SCH (09:06)
[2024-07-12] MEDS: PANTOPRAZOLE 40MG TAB (PROTONIX) PO SCH (09:07)
[2024-07-13 03:25] VITALS: BP 143/66; TEMP 97.4; O2SAT 98
[2024-07-13 06:35] LABS: HEMATOCRIT 24.3 % (36.0-47.0); HEMOGLOBIN 7.6 g/dl (12.0-15.5); MEAN CORPUSCULAR HEMOGLOBIN 27.3 pg (27.0-33.0); MEAN CORPUSCULAR HGB CONC 31.3 g/dl (32.0-36.5); MEAN CORPUSCULAR VOLUME 87.4 fl (80.0-96.0); PLATELET COUNT, AUTOMATED 279 10^3/uL (150-450); RED BLOOD COUNT 2.78 10^6/uL (4.00-5.40); WHITE BLOOD COUNT 10.1 10^3/uL (4.0-10.0)
[2024-07-13 06:42] LABS: PARTIAL THROMBOPLASTIN TIME 47.6 SECONDS (24.8-34.2)
[2024-07-13 06:55] LABS: ALBUMIN 2.3 G/DL (3.2-5.2); ALKALINE PHOSPHATASE 57 U/L (35-104); ALT/SGPT 41 U/L (7.0-40); AST/SGOT 38 U/L (<34); BILIRUBIN,TOTAL 0.6 MG/DL (0.3-1.2); BLOOD UREA NITROGEN 38 MG/DL (9-23); CALCIUM LEVEL 8.6 MG/DL (8.3-10.6); CARBON DIOXIDE LEVEL 33 MMOL/L (20-31); CHLORIDE LEVEL 108 MMOL/L (98-107); CREATININE FOR GFR 0.86 MG/DL (0.55-1.30); GLOMERULAR FILTRATION RATE > 60.0 (>32); GLUCOSE, FASTING 93 MG/DL (74-106); SODIUM LEVEL 144 MMOL/L (136-145); TOTAL PROTEIN 5.3 G/DL (5.7-8.2)
[2024-07-13 07:08] LABS: INR 7.01
[2024-07-13 07:26] VITALS: BP 134/63; TEMP 97.2; O2SAT 97
[2024-07-13] MEDS: PHYTONADIONE 5 MG TAB PO ONE (08:51)
[2024-07-13 08:55] VITALS: BP 137/56
[2024-07-13 16:00] VITALS: BP 136/60; TEMP 98.2; O2SAT 96
[2024-07-13 19:56] VITALS: BP 144/65; TEMP 97.3; O2SAT 97
[2024-07-13] MEDS: LEVEMIR (INSULIN DETEMIR) 1 UNITS/0.01ML SC SCH (20:37)
[2024-07-14 04:10] VITALS: BP 145/65; TEMP 97.6; O2SAT 96
[2024-07-14 06:08] LABS: HEMATOCRIT 27.1 % (36.0-47.0); HEMOGLOBIN 8.4 g/dl (12.0-15.5); MEAN CORPUSCULAR HEMOGLOBIN 27.3 pg (27.0-33.0); PLATELET COUNT, AUTOMATED 308 10^3/uL (150-450); RED BLOOD COUNT 3.08 10^6/uL (4.00-5.40); WHITE BLOOD COUNT 11.3 10^3/uL (4.0-10.0)
[2024-07-14 06:21] LABS: INR 2.19; PARTIAL THROMBOPLASTIN TIME 32.9 SECONDS (24.8-34.2); PROTHROMBIN TIME 24.4 SECONDS (12.5-14.5)
[2024-07-14 06:33] LABS: ALBUMIN 2.6 G/DL (3.2-5.2); ALKALINE PHOSPHATASE 63 U/L (35-104); ALT/SGPT 37 U/L (7.0-40); AST/SGOT 29 U/L (<34); BILIRUBIN,TOTAL 0.7 MG/DL (0.3-1.2); BLOOD UREA NITROGEN 32 MG/DL (9-23); CALCIUM LEVEL 8.5 MG/DL (8.3-10.6); CARBON DIOXIDE LEVEL 32 MMOL/L (20-31); CHLORIDE LEVEL 105 MMOL/L (98-107); CREATININE FOR GFR 0.89 MG/DL (0.55-1.30); GLOMERULAR FILTRATION RATE > 60.0 (>32); GLUCOSE, FASTING 49 MG/DL (74-106); POTASSIUM SERUM 4.1 MMOL/L (3.5-5.1); SODIUM LEVEL 141 MMOL/L (136-145); TOTAL PROTEIN 5.9 G/DL (5.7-8.2)
[2024-07-14] MEDS ORDERED: HUMA75VLDS SC (07:08)
[2024-07-14] MEDS ORDERED: ELIQ5TAB PO (07:08)
[2024-07-14 08:19] VITALS: BP 118/59; TEMP 97.4; O2SAT 95
[2024-07-14] MEDS: LEVEMIR (INSULIN DETEMIR) 1 UNITS/0.01ML SC SCH (08:51)
[2024-07-14 08:52] VITALS: BP 149/65
[2024-07-16] MEDS ORDERED: CEFDINIR 300 MG CAP (OMNICEF) PO SCH (21:00)
== END 2024-07-14 11:13 | disposition home health service (06) | DRG 948 ==
LOC: M ED 09:33 → EDBD 09:33 → M ED INP 12:41 → M PCU 16:25
PROVIDERS: ADMIT Internal Medicine; ATTEND Internal Medicine
DX: R79.1 Abnormal coagulation profile (principal); D62 Acute posthemorrhagic anemia; N39.0 Urinary tract infection, site not specified; I48.91 Unspecified atrial fibrillation; E78.5 Hyperlipidemia, unspecified; E11.51 Type 2 diabetes mellitus with diabetic peripheral angiopathy without gangrene; I10 Essential (primary) hypertension; S62.631A Displaced fracture of distal phalanx of left index finger, initial encounter for closed fracture; E11.40 Type 2 diabetes mellitus with diabetic neuropathy, unspecified; D50.9 Iron deficiency anemia, unspecified; I25.10 Atherosclerotic heart disease of native coronary artery without angina pectoris; Z95.1 Presence of aortocoronary bypass graft; Z79.01 Long term (current) use of anticoagulants; R58 Hemorrhage, not elsewhere classified; Z95.0 Presence of cardiac pacemaker; I49.5 Sick sinus syndrome; Z91.119 Patient's noncompliance with dietary regimen due to unspecified reason; H54.8 Legal blindness, as defined in USA; C50.011 Malignant neoplasm of nipple and areola, right female breast; Z79.899 Other long term (current) drug therapy; Z79.4 Long term (current) use of insulin; W23.2XXA Caught, crushed, jammed or pinched between a moving and stationary object, initial encounter

== ENCOUNTER → 2024-07-30 | Outpatient (CLI) | payer MEDICARE, BC ==
[~2024-07-30] MED LIST changes: +ELIQ5TAB PO; +FLUC-1 PO; -FLUC200T4 PO
[2024-07-30 14:20] LABS: BASO % 0.6 % (0.0-1.0); EOS # 0.1 10^3/uL (0.0-0.5); HEMATOCRIT 25.6 % (36.0-47.0); HEMOGLOBIN 7.7 g/dl (12.0-15.5); LYMPH % 15.8 % (24.0-44.0); MEAN CORPUSCULAR HEMOGLOBIN 27.4 pg (27.0-33.0); MEAN CORPUSCULAR HGB CONC 30.1 g/dl (32.0-36.5); MEAN CORPUSCULAR VOLUME 91.1 fl (80.0-96.0); MONO # 0.5 10^3/uL (0.0-0.8); MONO % 8.2 % (2.0-8.0); NEUTROPHILS # 4.7 10^3/uL (1.5-8.5); NEUTROPHILS % 73.1 % (36.0-66.0); PLATELET COUNT, AUTOMATED 245 10^3/uL (150-450); RED BLOOD COUNT 2.81 10^6/uL (4.00-5.40); WHITE BLOOD COUNT 6.4 10^3/uL (4.0-10.0)
[2024-07-30 14:23] LABS: ALBUMIN 2.5 G/DL (3.2-5.2); ALKALINE PHOSPHATASE 63 U/L (35-104); ALT/SGPT 25 U/L (7.0-40); AST/SGOT 31 U/L (<34); BILIRUBIN,TOTAL 0.4 MG/DL (0.3-1.2); BLOOD UREA NITROGEN 14 MG/DL (9-23); CALCIUM LEVEL 8.8 MG/DL (8.3-10.6); CARBON DIOXIDE LEVEL 31 MMOL/L (20-31); CHLORIDE LEVEL 106 MMOL/L (98-107); CREATININE FOR GFR 0.78 MG/DL (0.55-1.30); GLOMERULAR FILTRATION RATE > 60.0 (>32); GLUCOSE, FASTING 142 MG/DL (74-106); IRON (FE) 36 UG/DL (50-170); PERCENT SATURATION 14.1 % (13.2-45.0); POTASSIUM SERUM 3.9 MMOL/L (3.5-5.1); SODIUM LEVEL 142 MMOL/L (136-145); TOTAL IRON BINDING CAPACITY 256 UG/DL (250-425); TOTAL PROTEIN 5.7 G/DL (5.7-8.2)
== END ==
LOC: M PLALAB 09:31
PROVIDERS: ATTEND Nurse Practitioner Family
DX: D64.9 Anemia, unspecified (principal); I10 Essential (primary) hypertension

== ENCOUNTER → 2024-08-26 | Outpatient (CLI) | payer MEDICARE, BC ==
[~2024-08-26] MED LIST changes: +ISOVUE-370 76% 100ML VIAL As Ordered ONE
== END ==
LOC: M RAD 07:35
PROVIDERS: ATTEND Physician Assistant
DX: L97.922 Non-pressure chronic ulcer of unspecified part of left lower leg with fat layer exposed (principal); R68.89 Other general symptoms and signs; I70.248 Atherosclerosis of native arteries of left leg with ulceration of other part of lower leg; L97.912 Non-pressure chronic ulcer of unspecified part of right lower leg with fat layer exposed; L97.512 Non-pressure chronic ulcer of other part of right foot with fat layer exposed; L89.622 Pressure ulcer of left heel, stage 2
CPT/HCPCS: 73706; Q9967

== ENCOUNTER → 2024-10-02 | Outpatient (REF) | payer MEDICARE, BC ==
[~2024-10-02] MED LIST changes: -ISOVUE-370 76% 100ML VIAL As Ordered ONE
[2024-10-02 17:34] LABS: BASO % 0.5 % (0.0-1.0); EOS # 0.2 10^3/uL (0.0-0.5); EOS % 2.6 % (0.0-3.0); HEMATOCRIT 28.8 % (36.0-47.0); HEMOGLOBIN 8.5 g/dl (12.0-15.5); LYMPH # 1.7 10^3/uL (1.5-5.0); LYMPH % 20.2 % (24.0-44.0); MEAN CORPUSCULAR HEMOGLOBIN 25.2 pg (27.0-33.0); MEAN CORPUSCULAR HGB CONC 29.5 g/dl (32.0-36.5); MEAN CORPUSCULAR VOLUME 85.5 fl (80.0-96.0); MONO # 0.9 10^3/uL (0.0-0.8); MONO % 10.7 % (2.0-8.0); NEUTROPHILS # 5.5 10^3/uL (1.5-8.5); NEUTROPHILS % 65.8 % (36.0-66.0); PLATELET COUNT, AUTOMATED 280 10^3/uL (150-450); RED BLOOD COUNT 3.37 10^6/uL (4.00-5.40); WHITE BLOOD COUNT 8.3 10^3/uL (4.0-10.0)
== END ==
LOC: M SFHCWOUN 16:31
PROVIDERS: ATTEND Physician Assistant
DX: L97.512 Non-pressure chronic ulcer of other part of right foot with fat layer exposed (principal)

== ENCOUNTER → 2024-10-23 | Outpatient (CLI) | payer MEDICARE, BC ==
[2024-10-23 17:55] LABS: HEMOGLOBIN A1c 6.2 % (4.0-6.0)
== END ==
LOC: M PLALAB 14:00
PROVIDERS: ATTEND Physician Assistant
DX: I87.313 Chronic venous hypertension (idiopathic) with ulcer of bilateral lower extremity (principal)

== ENCOUNTER → 2024-10-23 | Outpatient (CLI) | payer MEDICARE, BC ==
[2024-10-23 17:28] LABS: HEMATOCRIT 32.4 % (36.0-47.0); HEMOGLOBIN 9.7 g/dl (12.0-15.5); MEAN CORPUSCULAR HEMOGLOBIN 25.6 pg (27.0-33.0); MEAN CORPUSCULAR HGB CONC 29.9 g/dl (32.0-36.5); MEAN CORPUSCULAR VOLUME 85.5 fl (80.0-96.0); PLATELET COUNT, AUTOMATED 305 10^3/uL (150-450); RED BLOOD COUNT 3.79 10^6/uL (4.00-5.40); WHITE BLOOD COUNT 8.7 10^3/uL (4.0-10.0)
[2024-10-23 17:38] LABS: BLOOD UREA NITROGEN 17 MG/DL (9-23); CALCIUM LEVEL 8.4 MG/DL (8.3-10.6); CARBON DIOXIDE LEVEL 33 MMOL/L (20-31); CHLORIDE LEVEL 102 MMOL/L (98-107); CREATININE FOR GFR 0.75 MG/DL (0.55-1.30); GLOMERULAR FILTRATION RATE > 60.0 (>32); GLUCOSE, FASTING 223 MG/DL (74-106); SODIUM LEVEL 145 MMOL/L (136-145)
[2024-10-23 17:43] LABS: INR 1.58; PARTIAL THROMBOPLASTIN TIME 34.5 SECONDS (24.8-34.2); PROTHROMBIN TIME 19.1 SECONDS (12.5-14.5)
== END ==
LOC: M PLALAB 13:57
PROVIDERS: ATTEND Physician Assistant
DX: Z01.818 Encounter for other preprocedural examination (principal); D69.8 Other specified hemorrhagic conditions

== ENCOUNTER → 2024-11-12 | Outpatient (CLI) | payer MEDICARE, BC ==
[2024-11-12 15:19] LABS: BASO # 0.1 10^3/uL (0.0-0.2); BASO % 0.5 % (0.0-1.0); EOS # 0.3 10^3/uL (0.0-0.5); EOS % 3.7 % (0.0-3.0); HEMATOCRIT 28.3 % (36.0-47.0); HEMOGLOBIN 8.3 g/dl (12.0-15.5); LYMPH # 2.2 10^3/uL (1.5-5.0); MEAN CORPUSCULAR HEMOGLOBIN 24.9 pg (27.0-33.0); MEAN CORPUSCULAR HGB CONC 29.3 g/dl (32.0-36.5); MONO # 1.1 10^3/uL (0.0-0.8); NEUTROPHILS # 5.5 10^3/uL (1.5-8.5); NEUTROPHILS % 59.4 % (36.0-66.0); PLATELET COUNT, AUTOMATED 275 10^3/uL (150-450); RED BLOOD COUNT 3.33 10^6/uL (4.00-5.40); WHITE BLOOD COUNT 9.2 10^3/uL (4.0-10.0)
[2024-11-12 15:31] LABS: HEMOGLOBIN A1c 6.6 % (4.0-6.0)
[2024-11-12 16:06] LABS: IRON (FE) 41 UG/DL (50-170); PERCENT SATURATION 15.8 % (13.2-45.0); TOTAL IRON BINDING CAPACITY 260 UG/DL (250-425)
[2024-11-12 16:57] LABS: ALKALINE PHOSPHATASE 59 U/L (35-104); ALT/SGPT 67 U/L (7.0-40); AST/SGOT 91 U/L (<34); BILIRUBIN,TOTAL 0.6 MG/DL (0.3-1.2); BLOOD UREA NITROGEN 15 MG/DL (9-23); CALCIUM LEVEL 8.1 MG/DL (8.3-10.6); CARBON DIOXIDE LEVEL 28 MMOL/L (20-31); CHLORIDE LEVEL 105 MMOL/L (98-107); CHOLESTEROL LEVEL 108 MG/DL (<200); CHOLESTEROL RISK RATIO 3.15 (<5); CREATININE FOR GFR 0.76 MG/DL (0.55-1.30); GLOMERULAR FILTRATION RATE > 60.0 (>32); GLUCOSE, FASTING 201 MG/DL (74-106); HDL CHOLESTEROL 34.2 MG/DL (>40); LDL CHOLESTEROL 60.2 MG/DL (<100); NON-HDL-C 73.8 MG/DL; POTASSIUM SERUM 4.6 MMOL/L (3.5-5.1); SODIUM LEVEL 143 MMOL/L (136-145); TOTAL PROTEIN 6.1 G/DL (5.7-8.2); TRIGLYCERIDES LEVEL 68 MG/DL (<150)
[2024-11-12 17:02] LABS: ALBUMIN 2.5 G/DL (3.2-5.2)
[2024-11-12 20:16] LABS: CREATININE, URINE 22.4 MG/DL; MALB URINE SIEMENS < 3.0 MG/L
== END ==
LOC: M PLALAB 10:56
PROVIDERS: ATTEND Nurse Practitioner Family
DX: E11.8 Type 2 diabetes mellitus with unspecified complications (principal)

== ENCOUNTER 2024-11-19 11:02 | Emergency (ER) | payer MEDICARE, BC ==
[~2024-11-19] VITALS: Ht 157.5 cm; Wt 91.7 kg
[2024-11-19 11:07] VITALS: BP 125/58; TEMP 97.9; O2SAT 98
== END 2024-11-19 13:44 | disposition left against medical advice (07) ==
LOC: M ED 11:02
DX: Z53.21 Procedure and treatment not carried out due to patient leaving prior to being seen by health care provider (principal)

== ENCOUNTER 2024-12-15 09:08 | Emergency (ER) | payer MEDICARE, BC ==
[~2024-12-15] VITALS: Ht 160 cm; Wt 82.4 kg
[2024-12-15 10:22] LABS: BASO # 0.1 10^3/uL (0.0-0.2); BASO % 0.8 % (0.0-1.0); EOS # 0.3 10^3/uL (0.0-0.5); EOS % 3.4 % (0.0-3.0); HEMATOCRIT 31.4 % (36.0-47.0); HEMOGLOBIN 9.4 g/dl (12.0-15.5); LYMPH # 1.7 10^3/uL (1.5-5.0); LYMPH % 21.4 % (24.0-44.0); MEAN CORPUSCULAR HEMOGLOBIN 25.5 pg (27.0-33.0); MEAN CORPUSCULAR HGB CONC 29.9 g/dl (32.0-36.5); MEAN CORPUSCULAR VOLUME 85.1 fl (80.0-96.0); MONO # 0.7 10^3/uL (0.0-0.8); MONO % 8.3 % (2.0-8.0); NEUTROPHILS # 5.3 10^3/uL (1.5-8.5); NEUTROPHILS % 65.8 % (36.0-66.0); PLATELET COUNT, AUTOMATED 277 10^3/uL (150-450); RED BLOOD COUNT 3.69 10^6/uL (4.00-5.40)
[2024-12-15 10:28] LABS: INR 1.74; PARTIAL THROMBOPLASTIN TIME 34.5 SECONDS (24.8-34.2); PROTHROMBIN TIME 20.5 SECONDS (12.5-14.5)
[2024-12-15 10:44] LABS: ALBUMIN 2.7 G/DL (3.2-5.2); ALKALINE PHOSPHATASE 53 U/L (35-104); ALT/SGPT 43 U/L (7.0-40); AST/SGOT 79 U/L (<34); BILIRUBIN,DIRECT 0.1 MG/DL (<0.4); BILIRUBIN,TOTAL 0.4 MG/DL (0.3-1.2); BLOOD UREA NITROGEN 16 MG/DL (9-23); CALCIUM LEVEL 8.6 MG/DL (8.3-10.6); CARBON DIOXIDE LEVEL 32 MMOL/L (20-31); CHLORIDE LEVEL 104 MMOL/L (98-107); CK-MB VALUE MASS 9.4 NG/ML (<3.6); CPK CREATINE PHOSPHOKINASE 159 U/L (34-145); GLOMERULAR FILTRATION RATE > 60.0 (>32); GLUCOSE, FASTING 127 MG/DL (74-106); MB/CK RELATIVE INDEX 5.91 (< OR =4); SODIUM LEVEL 143 MMOL/L (136-145); TOTAL PROTEIN 6.2 G/DL (5.7-8.2)
[2024-12-15 10:46] LABS: FREE T4 0.84 NG/DL (0.89-1.76); THYROID STIMULATING HORMONE 1.964 uIU/ML (0.55-4.78)
[2024-12-15 11:45] LABS: CK-MB VALUE MASS 11.2 NG/ML (<3.6)
[2024-12-15 11:47] LABS: MB/CK RELATIVE INDEX 7.56 (< OR =4)
[2024-12-15 13:01] VITALS: BP 138/63
[2024-12-15 13:08] VITALS: TEMP 98; O2SAT 100
== END 2024-12-15 13:40 | disposition short-term general hospital (02) ==
LOC: M ED 09:08
DX: I21.4 Non-ST elevation (NSTEMI) myocardial infarction (principal); I45.81 Long QT syndrome; E11.9 Type 2 diabetes mellitus without complications; E78.5 Hyperlipidemia, unspecified; K58.9 Irritable bowel syndrome, unspecified; Z86.79 Personal history of other diseases of the circulatory system; Z79.01 Long term (current) use of anticoagulants; Z95.0 Presence of cardiac pacemaker; Z79.02 Long term (current) use of antithrombotics/antiplatelets; Z79.899 Other long term (current) drug therapy; Z79.83 Long term (current) use of bisphosphonates

== ENCOUNTER 2024-12-23 15:19 | Emergency (ER) | payer MEDICARE, BC ==
[~2024-12-23] VITALS: Ht 160 cm; Wt 84.0 kg
[2024-12-23 16:10] LABS: BASO # 0.1 10^3/uL (0.0-0.2); BASO % 0.7 % (0.0-1.0); EOS # 0.3 10^3/uL (0.0-0.5); EOS % 3.3 % (0.0-3.0); HEMATOCRIT 33.2 % (36.0-47.0); HEMOGLOBIN 9.8 g/dl (12.0-15.5); LYMPH # 1.8 10^3/uL (1.5-5.0); LYMPH % 19.3 % (24.0-44.0); MEAN CORPUSCULAR HEMOGLOBIN 25.7 pg (27.0-33.0); MEAN CORPUSCULAR HGB CONC 29.5 g/dl (32.0-36.5); MEAN CORPUSCULAR VOLUME 86.9 fl (80.0-96.0); MONO # 0.8 10^3/uL (0.0-0.8); MONO % 8.2 % (2.0-8.0); NEUTROPHILS # 6.2 10^3/uL (1.5-8.5); NEUTROPHILS % 68.2 % (36.0-66.0); PLATELET COUNT, AUTOMATED 259 10^3/uL (150-450); RED BLOOD COUNT 3.82 10^6/uL (4.00-5.40); WHITE BLOOD COUNT 9.1 10^3/uL (4.0-10.0)
[2024-12-23 16:41] LABS: CALCIUM LEVEL 8.3 MG/DL (8.3-10.6); CK-MB VALUE MASS 3.7 NG/ML (<3.6); CREATININE FOR GFR 0.82 MG/DL (0.55-1.30); GLOMERULAR FILTRATION RATE 69.6 (>32); MAGNESIUM LEVEL 2.3 MG/DL (1.8-2.4); MB/CK RELATIVE INDEX 4.8 (< OR =4); POTASSIUM SERUM 3.9 MMOL/L (3.5-5.1)
[2024-12-23 17:24] LABS: CK-MB VALUE MASS 4.7 NG/ML (<3.6)
[2024-12-23 17:25] LABS: MB/CK RELATIVE INDEX 5.73 (< OR =4)
[2024-12-23] MEDS: dilTIAZem 30 MG TAB PO ONE (19:12)
[2024-12-23] MEDS: dilTIAZem 25MG/5ML VIAL IV STA ×2 (19:12→21:08)
[2024-12-23 21:08] VITALS: BP 108/58
[2024-12-23] MEDS ORDERED: HUMA75VLDS SC ×2 (22:25)
[2024-12-23] MEDS ORDERED: ECOT81TA5 PO (22:26)
[2024-12-23] MEDS ORDERED: AMIO200T49 PO (22:27)
[2024-12-23] MEDS ORDERED: DOCU100C16 PO (22:27)
[2024-12-23] MEDS ORDERED: HOME MED LIST COMPLETE! XX SCH (22:30)
[2024-12-23] MEDS: AMIODARONE HCL 150 MG in IV 1 EA IV SCH (23:18)
[2024-12-23] MEDS: AMIODARONE HCL 360 MG in IV 1 EA IV SCH (23:30)
[2024-12-24 00:15] VITALS: O2SAT 96
[2024-12-24] MEDS ORDERED: MIRALAX *UNIT DOSE* 17GM PACKET PO PRN (00:20)
[2024-12-24] MEDS ORDERED: DEXTROSE 50% 50ML SYRINGE IV PRN (00:20)
[2024-12-24] MEDS ORDERED: GLUCAGON INJ 1MG VIAL SC PRN (00:20)
[2024-12-24] MEDS ORDERED: GLUCOSE 4 GM CHEW PO PRN (00:20)
[2024-12-24 00:26] VITALS: BP 130/58; TEMP 99
[2024-12-24] MEDS ORDERED: AMIODARONE HCL 360 MG in IV 1 EA IV SCH (04:55)
[2024-12-24] MEDS ORDERED: INSULIN LISPRO (NovoLOG) PER UNIT SC SCH ×2 (07:30→21:00)
[2024-12-24] MEDS ORDERED: FERROUS SULFATE 325MG TAB PO SCH (09:00)
[2024-12-24] MEDS ORDERED: APIXABAN 5 MG TAB (ELIQUIS) PO SCH (09:00)
[2024-12-24] MEDS ORDERED: FUROSEMIDE 40 MG TAB PO SCH (09:00)
[2024-12-24] MEDS ORDERED: EZETIMIBE 10MG TABLET (ZETIA) PO SCH (09:00)
[2024-12-24] MEDS ORDERED: ATORVASTATIN 20 MG TAB PO SCH (09:00)
[2024-12-24] MEDS ORDERED: DOCUSATE SODIUM 100MG CAPSULE PO SCH (09:00)
[2024-12-24] MEDS ORDERED: LOSARTAN 25 MG TAB PO SCH (09:00)
[2024-12-24] MEDS ORDERED: GABAPENTIN 300 MG CAP PO SCH ×2 (09:00→21:00)
[2024-12-24] MEDS ORDERED: FLUCONAZOLE 100 MG TAB PO SCH (09:00)
[2024-12-24] MEDS ORDERED: ESCITALOPRAM OXALATE 5MG TABLET (LEXAPRO) PO SCH (09:00)
[2024-12-24] MEDS ORDERED: ASPIRIN 81MG ENTERIC TABLET PO SCH (09:00)
[2024-12-24] MEDS ORDERED: MIRTAZAPINE 15 MG TAB PO SCH (21:00)
== END 2024-12-24 00:29 | disposition short-term general hospital (02) ==
LOC: M ED 15:19
DX: R07.9 Chest pain, unspecified (principal); R00.0 Tachycardia, unspecified; E11.9 Type 2 diabetes mellitus without complications; I10 Essential (primary) hypertension; Z86.79 Personal history of other diseases of the circulatory system; Z95.0 Presence of cardiac pacemaker; Z79.01 Long term (current) use of anticoagulants; Z79.82 Long term (current) use of aspirin; Z79.02 Long term (current) use of antithrombotics/antiplatelets; Z79.83 Long term (current) use of bisphosphonates; Z79.899 Other long term (current) drug therapy
CPT/HCPCS: 71045; 80048; 82550; 82553; 83735; 84484; 85025; 93005; 93041; 94760; 96374; 96375; 96376; 99285; J0282

== ENCOUNTER 2025-01-06 07:36 | Emergency (ER) | payer MEDICARE, BC ==
[~2025-01-06] VITALS: Ht 160 cm; Wt 90.9 kg
[~2025-01-06 07:36] MED LIST changes: +AMIO200T49 PO; +DOCU100C16 PO; +ECOT81TA5 PO
[2025-01-06] MEDS: LIDOCAINE W/EPINEPHRINE 1% 20ML VIAL SC ONE (10:08)
[2025-01-06 10:30] VITALS: O2SAT 99
[2025-01-06 10:31] VITALS: BP 120/58; TEMP 98.4
== END 2025-01-06 10:41 | disposition home or self-care (01) ==
LOC: M ED 07:36
DX: S01.81XA Laceration without foreign body of other part of head, initial encounter (principal); W06.XXXA Fall from bed, initial encounter; M25.78 Osteophyte, vertebrae; M50.322 Other cervical disc degeneration at C5-C6 level; K58.9 Irritable bowel syndrome, unspecified; E11.9 Type 2 diabetes mellitus without complications; Y92.003 Bedroom of unspecified non-institutional (private) residence as the place of occurrence of the external cause; Y93.89 Activity, other specified; Y99.9 Unspecified external cause status; Z86.79 Personal history of other diseases of the circulatory system; Z79.01 Long term (current) use of anticoagulants; Z79.82 Long term (current) use of aspirin; Z79.02 Long term (current) use of antithrombotics/antiplatelets; Z79.4 Long term (current) use of insulin; Z79.899 Other long term (current) drug therapy; Z79.83 Long term (current) use of bisphosphonates; Z95.0 Presence of cardiac pacemaker

== ENCOUNTER → 2025-06-03 | Outpatient (CLI) | payer MEDICARE, BC ==
[~2025-06-03] MED LIST changes: -AMIO200T49 PO; +AMIO200T54 PO; -EZET10TA21 PO; +EZET10TA57 PO
[2025-06-03 14:32] LABS: CALCIUM LEVEL 8.3 MG/DL (8.3-10.6); CARBON DIOXIDE LEVEL 33.0 MMOL/L (20-31); CHLORIDE LEVEL 103.0 MMOL/L (98-107); CREATININE FOR GFR 1.17 MG/DL (0.55-1.30); GLOMERULAR FILTRATION RATE 45.4 (>32); PHOSPHORUS LEVEL 4.0 MG/DL (2.4-5.1); POTASSIUM SERUM 3.9 MMOL/L (3.5-5.1); SODIUM LEVEL 142.0 MMOL/L (136-145)
== END ==
LOC: M PLALAB 10:29
PROVIDERS: ATTEND Nurse Practitioner Family
DX: I11.9 Hypertensive heart disease without heart failure (principal); R06.02 Shortness of breath

== ENCOUNTER 2025-07-04 10:23 | Inpatient (IN) | payer MEDICARE, BC ==
[2025-07-04] VITALS (17 sets, daily range): BP systolic 0–148; BP diastolic 28–113; TEMP 97.7–98.5; O2SAT 65–100
[~2025-07-04] VITALS: Ht 157.5 cm; Wt 91.6 kg
[2025-07-04 11:19] LABS: BASO # 0.1 10^3/uL (0.0-0.2); BASO % 0.6 % (0.0-1.0); EOS # 0.8 10^3/uL (0.0-0.5); EOS % 6.4 % (0.0-3.0); LYMPH # 1.6 10^3/uL (1.5-5.0); LYMPH % 12.9 % (24.0-44.0); MONO # 0.8 10^3/uL (0.0-0.8); MONO % 6.2 % (2.0-8.0); NEUTROPHILS # 9.1 10^3/uL (1.5-8.5); NEUTROPHILS % 72.4 % (36.0-66.0); PLATELET COUNT, AUTOMATED 211 10^3/uL (150-450)
[2025-07-04 11:39] LABS: CK-MB VALUE MASS 2.4 NG/ML (<3.6)
[2025-07-04 11:40] LABS: ALT/SGPT 46.0 U/L (7.0-40); AST/SGOT 50.0 U/L (<34)
[2025-07-04 11:47] LABS: CPK CREATINE PHOSPHOKINASE 136.0 U/L (34-145); MB/CK RELATIVE INDEX 1.76 (< OR =4)
[2025-07-04 13:27] LABS: CK-MB VALUE MASS 3.4 NG/ML (<3.6)
[2025-07-04 13:31] LABS: CPK CREATINE PHOSPHOKINASE 139.0 U/L (34-145); MB/CK RELATIVE INDEX 2.44 (< OR =4)
[2025-07-04] MEDS ORDERED: MORPHINE 4 MG/ML 1 ML VIAL IV PRN (13:55)
[2025-07-04] MEDS ORDERED: HYDROMORPHONE HCL 0.5 MG/0.5 ML SYRINGE IV PRN ×2 (14:50)
[2025-07-04] MEDS: NS 500 ML IV ONE (15:05)
[2025-07-04] MEDS ORDERED: DEXTROSE 50% 50 ML SYRINGE IV PRN (15:45)
[2025-07-04] MEDS ORDERED: GLUCAGON INJ 1 MG VIAL SC PRN (15:45)
[2025-07-04] MEDS ORDERED: GLUCOSE 4 GM CHEW PO PRN (15:45)
[2025-07-04 15:59] LABS: CALCIUM LEVEL 8.1 MG/DL (8.3-10.6); CARBON DIOXIDE LEVEL 27.0 MMOL/L (20-31); CHLORIDE LEVEL 108.0 MMOL/L (98-107); CREATININE FOR GFR 1.25 MG/DL (0.55-1.30); GLOMERULAR FILTRATION RATE 42.0 (>32); POTASSIUM SERUM 4.5 MMOL/L (3.5-5.1); SODIUM LEVEL 146.0 MMOL/L (136-145)
[2025-07-04 16:01] LABS: FREE T4 0.94 NG/DL (0.89-1.76)
[2025-07-04] MEDS: ONDANSETRON 4MG/2ML VIAL IV PRN (16:20)
[2025-07-04] MEDS ORDERED: SPIR-10 PO (16:27)
[2025-07-04] MEDS ORDERED: HOME MED LIST COMPLETE! XX SCH (16:30)
[2025-07-04] MEDS: ONDANSETRON 4MG/2ML VIAL IV ONE (16:42)
[2025-07-04] MEDS: INSULIN LISPRO (NovoLOG) PER UNIT SC SCH (17:30)
[2025-07-04] MEDS ORDERED: NOREPINEPHRINE 4 MG IN D5W 250 ML IVBAG (16 MCG/ML) As Ordered ONE (18:19)
[2025-07-04] MEDS: NOREPINEPHRINE 4MG IN D5 250ML 4 MG in IV 1 EA IV SCH (18:29)
[2025-07-04 19:02] LABS: VENOUS BASE EXCESS -11.0 (-2.0-2.0); VENOUS HCO3 18.5 MMOL/L (23.0-27.0); VENOUS O2 SATURATION 91.8 % (60.0-80.0); VENOUS PARTIAL PRESSURE CO2 58.1 mmHg (38.0-50.0); VENOUS PARTIAL PRESSURE O2 82.4 mmHg (30.0-50.0); VENOUS PH 7.121 UNITS (7.330-7.430); VENOUS STANDARD HCO3 15.7 MMOL/L; VENOUS TOTAL CO2 20.3 MMOL/L (24.0-28.0)
[2025-07-04 19:07] LABS: PLATELET COUNT, AUTOMATED 225 10^3/uL (150-450)
[2025-07-04] MEDS ORDERED: ISOVUE-370 76% 100 ML VIAL As Ordered ONE (19:08)
[2025-07-04 19:29] LABS: ALT/SGPT 91.0 U/L (7.0-40); AST/SGOT 104.0 U/L (<34); CALCIUM LEVEL 8.4 MG/DL (8.3-10.6); CARBON DIOXIDE LEVEL 20.0 MMOL/L (20-31); CHLORIDE LEVEL 109.0 MMOL/L (98-107); CREATININE FOR GFR 1.59 MG/DL (0.55-1.30); GLOMERULAR FILTRATION RATE 31.5 (>32); POTASSIUM SERUM 4.8 MMOL/L (3.5-5.1); SODIUM LEVEL 148.0 MMOL/L (136-145)
[2025-07-04] MEDS ORDERED: INSULIN LISPRO (NovoLOG) PER UNIT SC SCH (21:00)
[2025-07-04] MEDS ORDERED: APIXABAN 5 MG TAB PO SCH (21:00)
== END 2025-07-04 19:15 | disposition expired | DRG 535 ==
LOC: EDBD 10:23 → EDSEX 10:23 → M ED 10:23 → M ED INP 14:47 → M PCU 17:36 → M ICU 18:06
PROVIDERS: ADMIT Internal Medicine; ATTEND Internal Medicine
DX: S32.512A Fracture of superior rim of left pubis, initial encounter for closed fracture (principal); G93.41 Metabolic encephalopathy; E87.20 Acidosis, unspecified; I50.42 Chronic combined systolic (congestive) and diastolic (congestive) heart failure; I13.0 Hypertensive heart and chronic kidney disease with heart failure and stage 1 through stage 4 chronic kidney disease, or unspecified chronic kidney disease; I48.20 Chronic atrial fibrillation, unspecified; E87.1 Hypo-osmolality and hyponatremia; N17.9 Acute kidney failure, unspecified; E87.0 Hyperosmolality and hypernatremia; S32.592A Other specified fracture of left pubis, initial encounter for closed fracture; Z66 Do not resuscitate; R57.0 Cardiogenic shock; E11.319 Type 2 diabetes mellitus with unspecified diabetic retinopathy without macular edema; H54.8 Legal blindness, as defined in USA; E11.22 Type 2 diabetes mellitus with diabetic chronic kidney disease; N18.9 Chronic kidney disease, unspecified; I73.9 Peripheral vascular disease, unspecified; E11.51 Type 2 diabetes mellitus with diabetic peripheral angiopathy without gangrene; Z89.411 Acquired absence of right great toe; Z89.421 Acquired absence of other right toe(s); I25.10 Atherosclerotic heart disease of native coronary artery without angina pectoris; Z95.5 Presence of coronary angioplasty implant and graft; I49.5 Sick sinus syndrome; Z95.0 Presence of cardiac pacemaker; W06.XXXA Fall from bed, initial encounter; Y92.003 Bedroom of unspecified non-institutional (private) residence as the place of occurrence of the external cause; R74.01 Elevation of levels of liver transaminase levels; D50.9 Iron deficiency anemia, unspecified; K59.00 Constipation, unspecified; R33.9 Retention of urine, unspecified; Z68.36 Body mass index [BMI] 36.0-36.9, adult; Z79.01 Long term (current) use of anticoagulants